=== PATIENT | female | born 1985 | race Caucasian/White ===

== ENCOUNTER 2020-10-09 10:33 | Outpatient (CLI) | payer OTHER | END 2020-10-09 10:34 | disposition home or self-care (01) | LOC: RX STUDY 10:33 | PROVIDERS: ATTEND Specialist | DX: R10.2 Pelvic and perineal pain (principal) ==

== ENCOUNTER 2020-10-18 08:19 | Outpatient (CLI) | payer OTHER | END 2020-10-18 08:25 | disposition home or self-care (01) | LOC: MRI 08:19 | PROVIDERS: ATTEND Specialist | DX: R10.2 Pelvic and perineal pain (principal) | CPT/HCPCS: 72196; 74182 ==

== ENCOUNTER 2020-12-02 08:05 | Outpatient (CLI) | payer OTHER | END 2020-12-02 08:13 | disposition home or self-care (01) | LOC: SONOGRAMA 08:05 → MAMO-SONO 08:45 | PROVIDERS: ATTEND Specialist | DX: N83.299 Other ovarian cyst, unspecified side (principal) ==

== ENCOUNTER 2021-01-29 06:00 | Inpatient (IN) | payer OTHER ==
[~2021-01-29] VITALS: Ht 154.9 cm; Wt 129.0 kg
[~2021-01-29 06:00] MED LIST: GAS X; MULTI VITAMIN1 EACH PO; PEPCID AC10 MG PO; PROBIOTIC1 EAC1 PO; VITAMIN D310 MC4
[2021-01-29] MEDS ORDERED: INTESTINEX680 M1 (16:32)
[2021-01-29] MEDS ORDERED: GAS-X125 MG (16:32)
[2021-01-30] MEDS ORDERED: ULTRAM50 MG PO (09:10)
[2021-01-30] MEDS ORDERED: TYLENOL ARTHRI650 MG PO (09:10)
[2021-01-30] MEDS ORDERED: MIRALAX17 GM PO (09:10)
== END 2021-01-30 17:07 | disposition home or self-care (01) | DRG 746 ==
LOC: CIR.AMB 06:00 → O/R 12:14 → SURG 12:14
PROVIDERS: Specialist; ADMIT Surgery; ATTEND Surgery
PROC: 0U964ZZ Drainage of Left Fallopian Tube, Percutaneous Endoscopic Approach (ICD-10-PCS; 2021-01-29)
PROC: 3E0P4GC Introduction of Other Therapeutic Substance into Female Reproductive, Percutaneous Endoscopic Approach (ICD-10-PCS; 2021-01-29)
PROC: 0WBN4ZX Excision of Female Perineum, Percutaneous Endoscopic Approach, Diagnostic (ICD-10-PCS; principal; 2021-01-29 07:00)
PROC: 0DN84ZZ Release Small Intestine, Percutaneous Endoscopic Approach (ICD-10-PCS; 2021-01-29 07:00)
DX: N80.3 Endometriosis of pelvic peritoneum (principal); K56.51 Intestinal adhesions [bands], with partial obstruction; N97.1 Female infertility of tubal origin; N83.8 Other noninflammatory disorders of ovary, fallopian tube and broad ligament; N83.209 Unspecified ovarian cyst, unspecified side; Z86.16 Personal history of COVID-19

== ENCOUNTER 2021-02-05 19:49 | Inpatient (IN) | payer OTHER ==
[~2021-02-05] VITALS: Ht 154.9 cm; Wt 59.0 kg
[~2021-02-05 19:49] MED LIST changes: +GAS-X125 MG; +INTESTINEX680 M1; +MIRALAX17 GM PO; +TYLENOL ARTHRI650 MG PO; +ULTRAM50 MG PO
[2021-02-14] MEDS ORDERED: PEPCID AC20 MG PO (10:26)
[2021-02-14] MEDS ORDERED: ULTRAM50 MG PO (10:27)
== END 2021-02-14 12:38 | disposition home or self-care (01) | DRG 390 ==
LOC: ER 19:49 → SEC-K 02-06 11:12 → SURH 02-06 16:25
PROVIDERS: ADMIT Surgery; ATTEND Surgery
PROC: BW2110Z Computerized Tomography (CT Scan) of Abdomen and Pelvis using Low Osmolar Contrast, Unenhanced and Enhanced (ICD-10-PCS; principal; 2021-02-06)
PROC: BW2110Z Computerized Tomography (CT Scan) of Abdomen and Pelvis using Low Osmolar Contrast, Unenhanced and Enhanced (ICD-10-PCS; 2021-02-10)
DX: K56.50 Intestinal adhesions [bands], unspecified as to partial versus complete obstruction (principal); N80.8 Other endometriosis; Z20.822 Contact with and (suspected) exposure to COVID-19